=== PATIENT | male | born 1980 ===

== ENCOUNTER 2020-11-06 19:23 | Emergency (ER) | payer OTHER ==
[2020-11-06 20:49] LABS: HEMOGLOBIN 15.9 gm/dl (14.0-17.5); RED BLOOD COUNT 5.12 M/UL (4.20-5.50); WHITE BLOOD COUNT 21.6 K/UL (4.5-11.0)
[2020-11-06 21:10] LABS: BUN/CREATININE RATIO 18 (0-10)
== END 2020-11-07 03:00 | disposition short-term general hospital (02) ==
LOC: ER1 19:23
PROVIDERS: Physician Assistant Medical
DX: A41.9 Sepsis, unspecified organism (principal); N49.2 Inflammatory disorders of scrotum; Z20.822 Contact with and (suspected) exposure to COVID-19; L03.314 Cellulitis of groin; F17.210 Nicotine dependence, cigarettes, uncomplicated
CPT/HCPCS: 80053; 81001; 83605; 85025; 85652; 86140; 87040; 87070; 87077; 87186; 87205; 96365; 96366; 96367; 99284; J2543; J3370; J7030; Q9967; U0002